=== PATIENT | female | born 1955 | race Caucasian/White ===

== ENCOUNTER 2017-09-08 08:59 | Day surgery (SDC) | payer OTHER ==
[~2017-09-08] VITALS: Ht 170.2 cm; Wt 123.3 kg
[~2017-09-08 08:59] MED LIST: BUPIVACAINE/PF 0.5% ONE; EPINEPHRINE 1 MG/ML, 1ML ONE; FENTANYL PF 100 MCG/2ML ONE; HEPARIN 1,000 UNITS/ML, 10ML ONE; MIDAZOLAM 1 MG/ML, 2ML ONE
[2017-09-08] MEDS ORDERED: LIDOCAINE 1%, 2ML ONE (09:21)
[2017-09-08] MEDS ORDERED: SIMV20TA3 PO (09:24)
[2017-09-08] MEDS ORDERED: HYDR-3240 PO (09:24)
[2017-09-08] MEDS ORDERED: DOCU100C33 PO (09:24)
[2017-09-08] MEDS ORDERED: AMLO5TAB2 PO (09:24)
[2017-09-08] MEDS ORDERED: TRIA1TAB3 PO (09:24)
[2017-09-08 09:28] VITALS: BP 141/96
[2017-09-08] MEDS ORDERED: LACTATED RINGERS 1,000 ML IV SCH (09:34)
[2017-09-08] MEDS ORDERED: CEFAZOLIN 1,000 MG ONE ×2 (09:43→10:05)
[2017-09-08 09:51] LABS: HEMATOCRIT 41.5 % (34.6-47.8); HEMOGLOBIN 14.1 g/dL (11.7-16.4); WHITE BLOOD COUNT 9.1 x10^3/uL (3.4-10)
[2017-09-08] MEDS ORDERED: LIDOCAINE 1%, 2ML SQ PRN (10:00)
[2017-09-08 10:03] LABS: BLOOD UREA NITROGEN 14 mg/dL (7-18)
[2017-09-08] MEDS ORDERED: SUCCINYLCHOLINE 20 MG/ML, 10ML ONE (10:05)
[2017-09-08] MEDS ORDERED: ROCURONIUM 10 MG/ML ONE (10:05)
[2017-09-08] MEDS ORDERED: GLYCOPYRROLATE 0.2MG/1ML, 5ML ONE (10:05)
[2017-09-08] MEDS ORDERED: NEOSTIGMINE 1 MG/ML, 10ML ONE (10:05)
[2017-09-08] MEDS ORDERED: DEXAMETHASONE 4 MG/ML, 1ML ONE (10:05)
[2017-09-08] MEDS ORDERED: ONDANSETRON 2MG/ML, 2ML ONE (10:05)
[2017-09-08] MEDS ORDERED: PROPOFOL 10 MG/ML, 20ML ONE (10:05)
[2017-09-08 10:16] LABS: ASPARTATE AMINO TRANSFERASE 18 U/L (15-37)
[2017-09-08] MEDS ORDERED: ALBUTEROL/IPRATROPIUM 2.5MG/0.5MG, 3 ML ONE (11:23)
[2017-09-08] MEDS ORDERED: ACETAMINOPHEN 650 MG/20.3 ML UDC ONE (11:25)
[2017-09-08] MEDS ORDERED: OXYcodone 5 MG/5 ML ORAL.SOL UDC ONE (11:25)
[2017-09-08] MEDS ORDERED: ACETAMINOPHEN 325 MG TABLET ONE (11:25)
[2017-09-08] MEDS ORDERED: KETOROLAC 30 MG/1 ML ONE (11:26)
[2017-09-08] MEDS ORDERED: ALBUTEROL/IPRATROPIUM 2.5MG/0.5MG, 3 ML NPPB PRN (11:30)
[2017-09-08] MEDS ORDERED: KETOROLAC 30 MG/1 ML IVPush ONE (11:30)
[2017-09-08] MEDS ORDERED: ACETAMINOPHEN 325 MG TABLET PO PRN (11:30)
[2017-09-08] MEDS ORDERED: PROMETHAZINE 25 MG/ML, 1ML IV PRN (11:30)
[2017-09-08] MEDS ORDERED: ONDANSETRON 2MG/ML, 2ML IVPush PRN (11:30)
[2017-09-08] MEDS ORDERED: HYDROcodone/APAP 7.5-325MG/15ML UDC PO PRN (11:30)
[2017-09-08] MEDS ORDERED: FENTANYL PF 100 MCG/2ML IV PRN (11:30)
[2017-09-08] MEDS ORDERED: HYDROmorphone 1 MG/ML, 1ML IV PRN (11:30)
[2017-09-08] MEDS ORDERED: ALBUTEROL SULFATE 2.5 MG/3 ML NPPB PRN (11:30)
[2017-09-08] MEDS ORDERED: OXYcodone 5 MG/5 ML ORAL.SOL UDC PO PRN (11:30)
== END 2017-09-08 15:35 ==
LOC: OUT 08:59
PROVIDERS: ATTEND Surgery
DX: Z45.2 Encounter for adjustment and management of vascular access device (principal); C50.911 Malignant neoplasm of unspecified site of right female breast; E78.00 Pure hypercholesterolemia, unspecified; I10 Essential (primary) hypertension; E66.01 Morbid (severe) obesity due to excess calories; Z68.41 Body mass index [BMI] 40.0-44.9, adult; Z90.11 Acquired absence of right breast and nipple
CPT/HCPCS: 36415; 36561; 71010; 77001; 80053; 85025; 93005; 94640; C1788; J0171; J0330; J0690; J1100; J1644; J1885; J2250; J2405; J2704; J2710; J3010; J3490; J7120